=== PATIENT | male | born 1965 | race Caucasian/White ===

== ENCOUNTER 2018-03-10 22:57 | Emergency (ER) | payer OTHER ==
[~2018-03-10] VITALS: Ht 167.6 cm; Wt 77.1 kg
[2018-03-10 23:02] VITALS: BP 121/84
[2018-03-11] MEDS ORDERED: KETOROLAC 30 MG/ML VIAL IM ONE (01:00)
[2018-03-11] MEDS ORDERED: ACETAMIN/CODEINE 120/12MG-5ML 5 ML UDC PO ONE (01:00)
[2018-03-11 02:31] VITALS: BP 121/84
== END 2018-03-11 01:58 | disposition home or self-care (01) ==
LOC: MED 22:57
DX: J02.9 Acute pharyngitis, unspecified (principal); R13.10 Dysphagia, unspecified
CPT/HCPCS: 87081; 96372; 99284; J1885